=== PATIENT | male | born 1935 | race Caucasian/White ===

== ENCOUNTER → 2020-05-10 | Outpatient (CLI) | payer OTHER | LOC: RAD 10:11 | DX: M51.16 Intervertebral disc disorders with radiculopathy, lumbar region (principal); M47.817 Spondylosis without myelopathy or radiculopathy, lumbosacral region; I70.90 Unspecified atherosclerosis; I71.4 Abdominal aortic aneurysm, without rupture | CPT/HCPCS: 72100 ==